=== PATIENT | male | born 1970 ===

== ENCOUNTER → 2019-02-02 19:06 | Outpatient (REF) | payer OTHER, SELFPAY ==
[2019-02-02 19:29] LABS: Add Manual Diff / Slide Review NO; Basophils Absolute Auto 100 /uL (0-100); Basophils Percent Auto 1.2 % (0-2); Eosinophils Absolute Auto 200 /uL (0-450); Eosinophils Percent Auto 4.3 % (2-4); Hemoglobin 15.4 g/dL (13.5-17.5); Lymphocytes Absolute Auto 1400 /uL (1100-4500); Lymphocytes Percent Auto 29.8 % (25-40); Mean Corpuscular HGB Conc 34.2 % (30-36); Mean Corpuscular Volume 93.6 fL (80-100); Monocytes Absolute Auto 300 /uL (0-900); Monocytes Percent Auto 6.1 % (3-14); Neutrophils Absolute Auto 2800 /uL (1500-7000); Neutrophils Percent Auto 58.6 % (50-75); Platelet Count 204 X10^3/uL (150-400); Red Blood Cell Count 4.81 X10^6/uL (4.5-5.9); Red Cell Distribution Width 13.4 % (11.6-14.8); White Blood Cell Count 4.8 X10^3/uL (4.5-11.0)
[2019-02-02 19:33] LABS: Alanine Aminotransferase 74 IU/L (21-72); Albumin 4.7 g/dL (3.5-5.0); Albumin Globulin Ratio 1.8 (1.0-2.8); Alkaline Phosphatase 65 U/L (38-126); Aspartate Aminotransferase 36 IU/L (17-59); BUN Creatinine Ratio 22.5 (6-22); Bilirubin Total 0.5 mg/dL (0.2-1.3); Blood Urea Nitrogen 18 mg/dL (9-20); Calcium 9.5 mg/dL (8.4-10.2); Carbon Dioxide 27 mmol/L (22-32); Chloride 102 mmol/L (98-107); Cholesterol 150 mg/dL (140-199); Estimated Glomerular Filt Rate > 60.0 mL/min (>60); Globulin 2.6 g/dL (1.7-4.1); Glucose 162 mg/dL (70-100); HDL Cholesterol 39 mg/dL (40-60); HEMOLYSIS < 15 (0-50); LDL Cholesterol Calculated 81 mg/dL (<100); Potassium 4.4 mmol/L (3.4-5.1); Sodium 138 mmol/L (137-145); Total Protein 7.3 g/dL (6.3-8.2); Triglycerides 148 mg/dL (35-150)
[2019-02-02 19:58] LABS: Hemoglobin A1C% w Est Avg Glu 5.7 % (4.0-6.0)
[2019-02-02 21:24] LABS: Creatinine Urine Random 52.1 mg/dL
[2019-02-02 21:29] LABS: Microalbumi Creatinin Ratio Ur 11.5 ug/mg CR (<30); Microalbumin Urine Random < 0.6 mg/dL (0-1.6)
== END ==
LOC: LAB 19:06
PROVIDERS: Visit Provider Family Medicine Geriatric Medicine
DX: E11.65 Type 2 diabetes mellitus with hyperglycemia (principal); Z13.220 Encounter for screening for lipoid disorders; I10 Essential (primary) hypertension
CPT/HCPCS: 36415; 80053; 80061; 82043; 82570; 83036; 85025

== ENCOUNTER → 2019-02-03 19:40 | Outpatient (REF) | payer OTHER, SELFPAY ==
[2019-02-13 15:48] LABS: Creatinine, 24 Urine 2.83 g/24 h (0.50-2.15); Total Catecholamines 70 mcg/24 h (26-121); Total Volume: 4000 mL
== END ==
LOC: LAB 19:40
PROVIDERS: Visit Provider Family Medicine Geriatric Medicine
DX: I10 Essential (primary) hypertension (principal); E11.65 Type 2 diabetes mellitus with hyperglycemia
CPT/HCPCS: 82384

== ENCOUNTER → 2019-02-04 18:13 | Outpatient (REF) | payer OTHER, SELFPAY ==
[2019-02-10 18:46] LABS: Total Volume 3750 mL; Urine, Metanephrine 90 mcg/24 h (58-203); Urine, Normetanephrine 286 mcg/24 h (88-649)
== END ==
LOC: LAB 18:13
PROVIDERS: Visit Provider Family Medicine Geriatric Medicine
DX: R03.0 Elevated blood-pressure reading, without diagnosis of hypertension (principal)
CPT/HCPCS: 83835